=== PATIENT | male | born 1950 | race Caucasian/White ===

== ENCOUNTER 2016-10-05 10:31 | Emergency (ER) | payer MEDICARE ==
[~2016-10-05] VITALS: Ht 190.5 cm; Wt 136.3 kg
[~2016-10-05 10:31] MED LIST: ALBU8.5H5 INH; CLON0.1T PO; DIAZ2TAB PO; DIAZ5TAB4 PO; FLUT1DIS3 INH; HYDR-3240 PO; IPRA15SP2 INH; LEVO500T33 PO; LISI-170 PO; METO25TA35 PO; OXYC-229 PO; PRED20TA PO; ZOLP5TAB6 PO
[2016-10-05] MEDS ORDERED: ALBUTEROL/IPRATROPIUM 2.5MG/0.5MG, 3 ML ONE (12:35)
[2016-10-05] MEDS: ALBUTEROL/IPRATROPIUM 2.5MG/0.5MG, 3 ML NPPB SCH ×2 (12:39→12:44)
[2016-10-05 12:45] LABS: BLOOD UREA NITROGEN 11 mg/dL (7-18)
[2016-10-05 12:51] LABS: IS PT STATUS REG ER OR PRE ER? YES
[2016-10-05 14:18] VITALS: BP 140/94
== END 2016-10-05 14:22 | disposition home or self-care (01) ==
LOC: ED 11:23
DX: J45.901 Unspecified asthma with (acute) exacerbation (principal); K59.00 Constipation, unspecified; I13.0 Hypertensive heart and chronic kidney disease with heart failure and stage 1 through stage 4 chronic kidney disease, or unspecified chronic kidney disease; N18.9 Chronic kidney disease, unspecified; I50.9 Heart failure, unspecified; J44.9 Chronic obstructive pulmonary disease, unspecified; I95.9 Hypotension, unspecified; Z90.49 Acquired absence of other specified parts of digestive tract; Z91.041 Radiographic dye allergy status
CPT/HCPCS: 36415; 71010; 80048; 82040; 84484; 85025; 93005; 94640; 99285; J7512; J7620

== ENCOUNTER 2016-10-08 00:21 | Inpatient (IN) | payer MEDICARE ==
[~2016-10-08] VITALS: Ht 190.5 cm; Wt 148.5 kg
[2016-10-08] MEDS ORDERED: ALBUTEROL/IPRATROPIUM 2.5MG/0.5MG, 3 ML ONE (01:20)
[2016-10-08] MEDS ORDERED: ALBUTEROL/IPRATROPIUM 2.5MG/0.5MG, 3 ML NPPB ONE (01:30)
[2016-10-08 01:42] LABS: ASPARTATE AMINO TRANSFERASE 28 U/L (15-37); BLOOD UREA NITROGEN 20 mg/dL (7-18)
[2016-10-08 01:49] LABS: IS PT STATUS REG ER OR PRE ER? YES
[2016-10-08] MEDS ORDERED: SODIUM CHLORIDE 0.9% 1,000ML IVBOLUS ONE (02:00)
[2016-10-08] MEDS ORDERED: SODIUM CHLORIDE FLUSH 10ML SYR IVF ONE (02:00)
[2016-10-08] MEDS ORDERED: LORA2TAB PO (02:37)
[2016-10-08] MEDS ORDERED: TAMS0.4C2 PO (02:37)
[2016-10-08] MEDS ORDERED: ZOLP-413 PO (02:37)
[2016-10-08] MEDS ORDERED: PRED20TA PO (02:37)
[2016-10-08] MEDS ORDERED: FURO80TA3 PO (02:37)
[2016-10-08 03:19] VITALS: BP 140/87
[2016-10-08] MEDS ORDERED: FUROSEMIDE 20 MG/2 ML IV ONE (05:30)
[2016-10-08] MEDS ORDERED: HYDROcodone/APAP 5/325 TABLET PO PRN (06:00)
[2016-10-08] MEDS ORDERED: BISACODYL 10 MG SUPP PR PRN (06:00)
[2016-10-08] MEDS ORDERED: ENALAPRILAT 1.25 MG/ML, 2ML IVPush PRN (06:00)
[2016-10-08] MEDS ORDERED: ACETAMINOPHEN 325 MG TABLET PO PRN (06:00)
[2016-10-08] MEDS ORDERED: POLYETHYLENE GLYCOL 17 GM PACKET PO PRN (06:00)
[2016-10-08] MEDS ORDERED: GUAIFENESIN/DM 200-20MG, 10ML UDC PO PRN (06:00)
[2016-10-08] MEDS ORDERED: ONDANSETRON 2MG/ML, 2ML IVP PRN (06:00)
[2016-10-08] MEDS: ENOXAPARIN 40 MG/0.4 ML SQ SCH (06:32)
[2016-10-08] MEDS: methylPREDNISolone SOD SUCC 125 MG/2 ML IVPush SCH ×4 (06:33→23:43)
[2016-10-08] MEDS: CEFTRIAXONE PMX 1GM/50ML 50 ML IV SCH (06:35)
[2016-10-08] MEDS ORDERED: OXYcodone/APAP 10/325MG TABLET PO PRN (07:30)
[2016-10-08] MEDS: TAMSULOSIN 0.4 MG CAP.ER.24H PO SCH (08:30)
[2016-10-08] MEDS: METOPROLOL TARTRATE 25 MG TABLET PO SCH ×2 (08:30→21:30)
[2016-10-08] MEDS ORDERED: ALBUTEROL SULFATE 2.5 MG/3 ML ONE (08:41)
[2016-10-08] MEDS: ALBUTEROL SULFATE 2.5 MG/3 ML NPPB SCH ×3 (08:46→20:30)
[2016-10-08 09:10] VITALS: BP 135/78
[2016-10-08] MEDS ORDERED: LORazepam 1MG TABLET ONE ×2 (10:48→21:25)
[2016-10-08] MEDS ORDERED: ZOLPIDEM 10MG TABLET PO PRN (11:00)
[2016-10-08 13:42] VITALS: BP 112/67
[2016-10-08] MEDS: OXYcodone/APAP 10/325MG TABLET PO PRN (18:21)
[2016-10-08 20:01] VITALS: BP 146/87
[2016-10-09 02:16] VITALS: BP 112/56
[2016-10-09] MEDS: ENOXAPARIN 40 MG/0.4 ML SQ SCH (05:53)
[2016-10-09] MEDS: methylPREDNISolone SOD SUCC 125 MG/2 ML IVPush SCH ×4 (05:53→23:33)
[2016-10-09] MEDS: CEFTRIAXONE PMX 1GM/50ML 50 ML IV SCH (05:53)
[2016-10-09] MEDS: OXYcodone/APAP 10/325MG TABLET PO PRN ×2 (05:54→11:52)
[2016-10-09 06:03] LABS: ASPARTATE AMINO TRANSFERASE 23 U/L (15-37); BLOOD UREA NITROGEN 20 mg/dL (7-18)
[2016-10-09] MEDS: ALBUTEROL SULFATE 2.5 MG/3 ML NPPB SCH ×4 (07:00→19:39)
[2016-10-09 07:45] VITALS: BP 136/87
[2016-10-09] MEDS: METOPROLOL TARTRATE 25 MG TABLET PO SCH ×2 (09:20→23:33)
[2016-10-09] MEDS: TAMSULOSIN 0.4 MG CAP.ER.24H PO SCH (09:20)
[2016-10-09 12:34] VITALS: BP 136/90
[2016-10-09] MEDS: GUAIFENESIN 200 MG TABLET PO SCH ×2 (18:03→23:57)
[2016-10-09 20:14] VITALS: BP 134/82
[2016-10-10 02:44] VITALS: BP 165/94
[2016-10-10 05:42] LABS: BLOOD UREA NITROGEN 24 mg/dL (7-18)
[2016-10-10] MEDS: CEFTRIAXONE PMX 1GM/50ML 50 ML IV SCH (05:57)
[2016-10-10] MEDS: methylPREDNISolone SOD SUCC 125 MG/2 ML IVPush SCH ×3 (06:01→18:08)
[2016-10-10] MEDS: ENOXAPARIN 40 MG/0.4 ML SQ SCH (06:03)
[2016-10-10] MEDS: GUAIFENESIN 200 MG TABLET PO SCH ×4 (06:03→22:33)
[2016-10-10] MEDS: ALBUTEROL SULFATE 2.5 MG/3 ML NPPB SCH ×2 (07:35→19:37)
[2016-10-10 08:10] VITALS: BP 152/87
[2016-10-10] MEDS: TAMSULOSIN 0.4 MG CAP.ER.24H PO SCH (09:36)
[2016-10-10] MEDS: METOPROLOL TARTRATE 25 MG TABLET PO SCH ×2 (09:36→22:33)
[2016-10-10] MEDS: OXYcodone/APAP 10/325MG TABLET PO PRN ×2 (09:38→16:00)
[2016-10-10 13:25] VITALS: BP 119/79
[2016-10-10] MEDS ORDERED: GLUCAGON 1 MG IM PRN (16:00)
[2016-10-10] MEDS ORDERED: DEXTROSE 4 GM TAB.CHEW PO PRN (16:00)
[2016-10-10] MEDS ORDERED: DEXTROSE 50%, 50ML SYRINGE IVPush PRN (16:00)
[2016-10-10] MEDS: INSULIN REGULAR 100 UNITS/ML, 3ML VIAL SQ-INSULIN SCH ×2 (17:24→22:41)
[2016-10-10] MEDS ORDERED: OXYcodone/APAP 10/325MG TABLET PO PRN (19:30)
[2016-10-10] MEDS ORDERED: ALBUTEROL SULFATE 2.5 MG/3 ML ONE (19:31)
[2016-10-10 20:02] VITALS: BP 145/90
[2016-10-10] MEDS: SODIUM CHLORIDE FLUSH 10ML SYR IVF SCH (21:00)
[2016-10-11] MEDS: methylPREDNISolone SOD SUCC 125 MG/2 ML IVPush SCH ×3 (01:44→23:26)
[2016-10-11 03:08] VITALS: BP 149/94
[2016-10-11] MEDS: OXYcodone/APAP 10/325MG TABLET PO PRN ×3 (05:46→18:20)
[2016-10-11 05:51] LABS: BLOOD UREA NITROGEN 32 mg/dL (7-18)
[2016-10-11] MEDS: GUAIFENESIN 200 MG TABLET PO SCH ×4 (06:20→23:24)
[2016-10-11] MEDS: ENOXAPARIN 40 MG/0.4 ML SQ SCH (06:20)
[2016-10-11] MEDS: CEFTRIAXONE PMX 1GM/50ML 50 ML IV SCH (06:20)
[2016-10-11] MEDS: ALBUTEROL SULFATE 2.5 MG/3 ML NPPB SCH ×2 (07:22→20:44)
[2016-10-11] MEDS: INSULIN REGULAR 100 UNITS/ML, 3ML VIAL SQ-INSULIN SCH ×3 (08:00→16:54)
[2016-10-11 08:07] VITALS: BP 145/90
[2016-10-11] MEDS: TAMSULOSIN 0.4 MG CAP.ER.24H PO SCH (10:31)
[2016-10-11] MEDS: SODIUM CHLORIDE FLUSH 10ML SYR IVF SCH ×2 (10:31→23:23)
[2016-10-11] MEDS: METOPROLOL TARTRATE 25 MG TABLET PO SCH ×2 (10:31→23:24)
[2016-10-11 13:42] VITALS: BP 118/66
[2016-10-11 20:51] VITALS: BP 115/69
[2016-10-12] MEDS: INSULIN REGULAR 100 UNITS/ML, 3ML VIAL SQ-INSULIN SCH ×3 (00:49→11:00)
[2016-10-12] MEDS: OXYcodone/APAP 10/325MG TABLET PO PRN ×2 (00:50→07:31)
[2016-10-12 01:39] VITALS: BP 135/87
[2016-10-12] MEDS: GUAIFENESIN 200 MG TABLET PO SCH ×2 (06:00→13:00)
[2016-10-12] MEDS: CEFTRIAXONE PMX 1GM/50ML 50 ML IV SCH (07:30)
[2016-10-12] MEDS: ENOXAPARIN 40 MG/0.4 ML SQ SCH (07:31)
[2016-10-12 07:51] VITALS: BP 147/93
[2016-10-12] MEDS: methylPREDNISolone SOD SUCC 125 MG/2 ML IVPush SCH (09:01)
[2016-10-12] MEDS: METOPROLOL TARTRATE 25 MG TABLET PO SCH (09:01)
[2016-10-12] MEDS: TAMSULOSIN 0.4 MG CAP.ER.24H PO SCH (09:01)
[2016-10-12] MEDS: SODIUM CHLORIDE FLUSH 10ML SYR IVF SCH (09:02)
[2016-10-12] MEDS ORDERED: GUAI400T26 PO (09:03)
[2016-10-12] MEDS ORDERED: CEFD300C37 PO (09:03)
[2016-10-12] MEDS ORDERED: PRED10TA PO (09:03)
[2016-10-12 09:20] LABS: BLOOD UREA NITROGEN 35 mg/dL (7-18)
[2016-10-12] MEDS: ALBUTEROL SULFATE 2.5 MG/3 ML NPPB SCH (09:32)
[2016-10-12 13:40] VITALS: BP 140/94
== END 2016-10-12 13:50 | disposition home or self-care (01) | DRG 190 ==
LOC: ED 02:21 → EDIP 02:23 → 4NOR 03:01
PROVIDERS: ADMIT Internal Medicine; ATTEND Internal Medicine
DX: J44.0 Chronic obstructive pulmonary disease with (acute) lower respiratory infection (principal); I50.33 Acute on chronic diastolic (congestive) heart failure; J96.11 Chronic respiratory failure with hypoxia; Z68.41 Body mass index [BMI] 40.0-44.9, adult; J44.1 Chronic obstructive pulmonary disease with (acute) exacerbation; E66.01 Morbid (severe) obesity due to excess calories; F41.9 Anxiety disorder, unspecified; J20.9 Acute bronchitis, unspecified; G89.29 Other chronic pain; I11.0 Hypertensive heart disease with heart failure; I45.10 Unspecified right bundle-branch block; J45.909 Unspecified asthma, uncomplicated; Z59.0 Homelessness; Z91.19 Patient's noncompliance with other medical treatment and regimen; Z90.49 Acquired absence of other specified parts of digestive tract; Z99.81 Dependence on supplemental oxygen; Z79.899 Other long term (current) drug therapy
CPT/HCPCS: 36415; 71010; 80048; 80053; 82040; 82962; 83880; 84484; 85025; 93005; 94640; 99291; J0696; J1650; J1815; J7613; J7620; J1940; J2930; J7030; J7512

== ENCOUNTER 2016-10-17 16:31 | Emergency (ER) | payer MEDICARE ==
[~2016-10-17] VITALS: Ht 190.5 cm; Wt 140.3 kg
[~2016-10-17 16:31] MED LIST changes: +CEFD300C37 PO; +FURO80TA3 PO; +GUAI400T26 PO; +LORA2TAB PO; +PRED10TA PO; +TAMS0.4C2 PO; +ZOLP-413 PO
[2016-10-17] MEDS ORDERED: ASPIRIN 81 MG TABLET CHEW PO ONE (17:30)
[2016-10-17] MEDS ORDERED: SODIUM CHLORIDE FLUSH 10ML SYR IVF ONE (17:30)
[2016-10-17] MEDS ORDERED: SODIUM CHLORIDE 0.9% 1,000ML IVBOLUS ONE (17:30)
[2016-10-17] MEDS ORDERED: ALBUTEROL/IPRATROPIUM 2.5MG/0.5MG, 3 ML NPPB ONE (18:00)
[2016-10-17] MEDS ORDERED: ASPIRIN 81 MG TABLET CHEW ONE (18:13)
[2016-10-17] MEDS ORDERED: ALBUTEROL/IPRATROPIUM 2.5MG/0.5MG, 3 ML ONE (18:29)
[2016-10-17 18:44] LABS: BLOOD UREA NITROGEN 30 mg/dL (7-18)
[2016-10-17 18:51] LABS: ASPARTATE AMINO TRANSFERASE 34 U/L (15-37); IS PT STATUS REG ER OR PRE ER? YES
[2016-10-17 19:09] VITALS: BP 142/103
== END 2016-10-17 19:50 | disposition home or self-care (01) ==
LOC: ED 18:39
DX: J44.1 Chronic obstructive pulmonary disease with (acute) exacerbation (principal); R42 Dizziness and giddiness; I13.0 Hypertensive heart and chronic kidney disease with heart failure and stage 1 through stage 4 chronic kidney disease, or unspecified chronic kidney disease; N18.9 Chronic kidney disease, unspecified; I50.9 Heart failure, unspecified; F41.1 Generalized anxiety disorder; J96.10 Chronic respiratory failure, unspecified whether with hypoxia or hypercapnia; Z59.0 Homelessness
CPT/HCPCS: 36415; 71010; 80053; 83880; 84484; 85025; 93005; 94640; J7620

== ENCOUNTER 2017-05-21 04:19 | Emergency (ER) | payer MEDICARE, MEDICAID ==
[~2017-05-21] VITALS: Ht 190.5 cm; Wt 126.1 kg
[~2017-05-21 04:19] MED LIST changes: -GUAI400T26 PO; +GUAI400T66 PO; -LEVO500T33 PO; +LEVO500T47 PO; -OXYC-229 PO; +OXYC-302 PO; +OXYC-307 PO
[2017-05-21] MEDS ORDERED: ONDANSETRON 2MG/ML, 2ML ONE (04:57)
[2017-05-21] MEDS ORDERED: MAALOX/HYOSCYAMINE/LIDOCAINE 45 ML BTL ONE (04:57)
[2017-05-21] MEDS ORDERED: FAMOTIDINE 20 MG/2 ML ONE (04:57)
[2017-05-21] MEDS ORDERED: SODIUM CHLORIDE 0.9% 1,000ML IVBOLUS ONE (05:00)
[2017-05-21] MEDS ORDERED: ONDANSETRON 2MG/ML, 2ML IVPush ONE (05:00)
[2017-05-21] MEDS ORDERED: MAALOX/HYOSCYAMINE/LIDOCAINE 45 ML BTL PO ONE (05:00)
[2017-05-21] MEDS ORDERED: SODIUM CHLORIDE FLUSH 10ML SYR IVF ONE (05:00)
[2017-05-21] MEDS ORDERED: FAMOTIDINE 20 MG/2 ML IVP ONE (05:00)
[2017-05-21 05:18] LABS: HEMATOCRIT 47.7 % (39.2-51.8); HEMOGLOBIN 16.4 g/dL (13.7-18.0); WHITE BLOOD COUNT 11.1 x10^3/uL (3.4-10)
[2017-05-21 05:32] LABS: ASPARTATE AMINO TRANSFERASE 16 U/L (15-37); BLOOD UREA NITROGEN 15 mg/dL (7-18)
[2017-05-21] MEDS ORDERED: HYDROmorphone 2 MG/ML, 1ML ONE (06:37)
[2017-05-21] MEDS ORDERED: HYDROmorphone 1 MG/ML, 1ML IVPush PRN (07:00)
[2017-05-21] MEDS ORDERED: HYDROmorphone 2 MG/ML, 1ML IVPush PRN (07:00)
[2017-05-21] MEDS ORDERED: PROMETHAZINE 25 MG/ML, 1ML IM ONE (08:00)
[2017-05-21] MEDS ORDERED: DICYCLOMINE 10 MG/ML, 2ML IM ONE (08:00)
[2017-05-21] MEDS ORDERED: PROMETHAZINE 25 MG/ML, 1ML ONE ×2 (08:07→08:34)
[2017-05-21] MEDS ORDERED: DICYCLOMINE 10 MG/ML, 2ML ONE (08:34)
[2017-05-21 08:50] VITALS: BP 166/106
== END 2017-05-21 09:23 | disposition home or self-care (01) ==
LOC: ED 05:37
DX: K52.9 Noninfective gastroenteritis and colitis, unspecified (principal); J44.9 Chronic obstructive pulmonary disease, unspecified; I11.0 Hypertensive heart disease with heart failure; I50.9 Heart failure, unspecified
CPT/HCPCS: 36415; 74022; 74176; 80053; 83690; 85025; 96361; 96372; 96374; 96375; 99285; J0500; J1170; J2405; J2550; J7030; S0028